=== PATIENT | male | born 1990 | race Caucasian/White ===

== ENCOUNTER 2016-06-14 20:01 | Emergency (ER) | payer SELFPAY ==
[2016-06-14 20:39] VITALS: BP 140/75
[2016-06-14] MEDS ORDERED: Ibuprofen TAB* 400 MG PO ONE (20:52)
[2016-06-14] MEDS ORDERED: Cyclobenzaprine TAB* 10 MG PO ONE ×2 (20:53→21:18)
--- NOTE | 2016-06-14 21:15 | ED ---
Back Pain - HPI Summary HPI Summary: 25 yr old male with low back pain. HPI: The patient states he works for [employer]. 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 He has had low midline back pain since this incident. pain is 5/10. He came today because pain worsened. It does not radiate. No bowel or bladder incontinence. No numbness or weakness in the legs. He states he has had low back pain in same area a few years ago when he was at a [employer] working out. Same quality and location as this time. - History of Current Complaint Stated Complaint: LOWER BACK PAIN-WC Time Seen by Provider: 06/14/16 20:48 - Allergies/Home Medications Allergies/Adverse Reactions: Allergies Allergy/AdvReac Type Severity Reaction Status Date / Time No Known Allergies Allergy Verified 06/14/16 20:40 Home Medications: Home Medications Acetaminophen TAB* [Tylenol TAB*] 500 mg PO Q8H PRN 06/14/16 [History Confirmed 06/14/16] PMH/Surg Hx/FS Hx/Imm Hx Endocrine/Hematology History: Denies: Hx Diabetes, Hx Thyroid Disease Cardiovascular History: Denies: Hx Hypertension Respiratory History: Denies: Hx Asthma, Hx Chronic Obstructive Pulmonary Disease (COPD) GI History: Denies: Hx Ulcer - Surgical History Surgery Procedure, Year, and Place: denies Infectious Disease History: No Infectious Disease History: Denies: Hx Clostridium Difficile, Hx Hepatitis, Hx Human Immunodeficiency Virus (HIV), Hx of Known/Suspected MRSA, Hx Shingles, Hx Tuberculosis, Hx Known/ Suspected VRE, Hx Known/Suspected VRSA, History Other Infectious Disease, Traveled Outside the [place] in Last 30 Days - Family History Known Family History: Positive: Hypertension - Social History Alcohol Use: Occasionally Substance Use Type: Reports: None Smoking Status (MU): Light Every Day Tobacco Smoker Type: Cigarettes Amount Used/How Often: ~ 5 cigs per day Length of Time of Smoking/Using Tobacco: started ~ age 16 Review of Systems Constitutional: Negative Genitourinary: Negative Negative: incontinence Positive: Other - back pain Negative: Weakness, Paresthesia, Numbness All Other Systems Reviewed And Are Negative: Yes Physical Exam Triage Information Reviewed: Yes Vital Signs On Initial Exam: Initial Vitals Temp Pulse Resp BP 98.5 F 88 18 140/75 06/14/16 20:34 06/14/16 20:34 06/14/16 20:34 06/14/16 20:34 Vital Signs Reviewed: Yes Appearance: Positive: Well-Appearing, No Pain Distress, Well-Nourished Skin: Positive: Warm Head/Face: Positive: Normal Head/Face Inspection Eyes: Positive: Normal, EOMI, ROSALIA Respiratory/Lung Sounds: Positive: Clear to Auscultation, Breath Sounds Present Cardiovascular: Positive: Normal, RRR. Negative: Murmur Abdomen Description: Positive: Nontender Musculoskeletal: Positive: Normal, Strength/ROM Intact Neurological: Positive: Normal, Sensory/Motor Intact, Alert, Oriented to Person Place, Time, CN Intact II-III, Normal Gait, Speech Normal Psychiatric: Positive: Normal Diagnostics - Vital Signs Vital Signs Temp Pulse Resp BP 06/14/16 20:34 98.5 F 88 18 140/75 - Laboratory Lab Statement: Any lab studies that have been ordered have been reviewed, and results considered in the medical decision making process. - Radiology 06/14/16 lumbar spine Xray Interpretation: No Acute Changes Radiology Interpretation Completed By: Radiologist - verbal report from radiologist Dr Blair Back Pain Course/Dx - Course Course Of Treatment: 25 yr old with low back strain, neg xrays. No neuro symptoms. Dc home, ortho referral. - Diagnoses Provider Diagnoses: Low back strain Discharge - Discharge Plan Condition: Good Disposition: HOME Prescriptions: Cyclobenzaprine TAB* [Flexeril 10 MG TAB*] 10 mg PO BID PRN #14 tab PRN Reason: Spasms - Back Ibuprofen TAB* [Motrin TAB* 600 MG] 600 mg PO Q6H PRN #20 tab PRN Reason: Pain Patient Education Materials: Low Back Strain (ED), Acute Low Back Pain (ED) Forms: *Work Release Referrals: [facility] [Outside] No Primary Care Phys,NOPCP [Primary Care Provider] - Kalpana Chew MD [Medical Doctor] -
--- NOTE | 2016-06-14 22:04 | RAD ---
Indication: Low back pain following lifting injury 10 days ago. Increased pain today. Comparison: None. Technique: AP, lateral, and oblique views lumbar sacral spine. Report: Alignment is anatomic. No cortical disruption or trabecular impaction to indicate a vertebral body fracture. Oblique views without evidence for spondylolysis. Preserved disc spaces. Unremarkable soft tissue contours. IMPRESSION: Negative exam.
== END 2016-06-14 22:03 | disposition home or self-care (01) ==
LOC: UCCORT 20:01
DX: S39.012S Strain of muscle, fascia and tendon of lower back, sequela (principal); X50.0XXS Overexertion from strenuous movement or load, sequela; F17.210 Nicotine dependence, cigarettes, uncomplicated
CPT/HCPCS: 72110; 99212; A9270-GY; G0463